=== PATIENT | male | born 1960 | race Two or more races ===

== ENCOUNTER 2020-10-24 20:54 | Emergency (ER) | payer OTHER ==
[2020-10-24 21:14] VITALS: BP 129/76; PULSE 99; TEMP 98.1; BMI 25.8
== END 2020-10-24 21:45 | disposition home or self-care (01) ==
LOC: JER 20:54
DX: N47.2 Paraphimosis (principal)
CPT/HCPCS: 99283-25

== ENCOUNTER 2020-11-07 14:46 | Inpatient (IN) | payer OTHER ==
[2020-11-07 18:20] LABS: BASO % 0.4 % (0-2.0); EOS % 2.4 % (0-4.5); HEMATOCRIT 33.4 % (35.4-49); HEMOGLOBIN 10.9 GM/dL (11.7-16.9); LYMPH % 20.3 % (8-40); MCHC 32.5 g/dl (32.0-35.9); MEAN CELL VOLUME 86.1 fl (80-96); MEAN PLT VOLUME 7.7 fl (7.5-11.1); MONO % 9.2 % (3.8-10.2); NEUT % 67.7 % (42.8-82.8); PLATELET COUNT 389 10^3/uL (134-434); RBC 3.87 M/mm3 (4.00-5.60); RDW 17.6 % (11.9-15.9); WHITE BLOOD COUNT 11.5 K/mm3 (4.0-10.0)
[2020-11-07 18:26] LABS: PROTHROMBIN TIME (PATIENT) 12.1 SEC (9.7-13.0)
[2020-11-07 18:29] LABS: ACTIVATED PTT 28.8 SECONDS (25.2-36.5)
[2020-11-07 18:52] LABS: CHLORIDE 101 mmol/L (98-107); SODIUM 134 mmol/L (136-145)
[2020-11-07 18:59] LABS: CALCIUM 9.1 mg/dL (8.5-10.1)
[2020-11-07 19:00] LABS: ALBUMIN 3.2 g/dl (3.4-5.0); ANION GAP 9 MMOL/L (8-16); BLOOD UREA NITROGEN 20.4 mg/dL (7-18); CO2 24 mmol/L (21-32); GLUCOSE,RANDOM 94 mg/dL (74-106); MAGNESIUM 1.5 mg/dL (1.8-2.4)
[2020-11-07 19:03] LABS: SGOT/AST 13 U/L (15-37); SGPT/ALT 20 U/L (13-61)
[2020-11-07 19:04] LABS: CREATININE 1.4 mg/dL (0.55-1.3)
[2020-11-07 19:05] LABS: BILIRUBIN,TOTAL 0.3 mg/dL (0.2-1); TOT PROT 7.6 g/dl (6.4-8.2)
[2020-11-07 19:06] LABS: ALK PHOS 61 U/L (45-117)
[2020-11-07] MEDS ORDERED: LACTATED RINGERS SOLUTION 1000 ML INFUS.BAG IV ONE (19:12)
[2020-11-07] MEDS ORDERED: MAGNESIUM SULF 50% (8.12 MEQ/2 ML-1 GM VIAL) IVPB ONE (19:12)
[2020-11-07] MEDS ORDERED: MAGNESIUM 1GM/D5W - 1 GM/100 ML IVPB IVPB ONE (19:29)
[2020-11-07 21:13] LABS: EPI CELLS 4 /uL (0-25.1); HYALINE CASTS 1 /uL (0-3.1); PH,URINE 5.5 (5.0-8.0); URINE APPEARANCE Error; URINE BACTERIA 2 /uL (0-1359); URINE BILIRUBIN NEGATIVE (NEGATIVE); URINE COLOR YELLOW; URINE GLUCOSE (UA) NEGATIVE (NEGATIVE); URINE KETONE NEGATIVE (NEGATIVE); URINE LEUK ESTERASE NEGATIVE (NEGATIVE); URINE NITRITE NEGATIVE (NEGATIVE); URINE PROTEIN 1+ (NEGATIVE); URINE RBC 4 /uL (0-23.9); URINE UROBILINOGEN 0.2 mg/dL (0.2-1.0); URINE WBC 9 /uL (0-25.8)
[2020-11-08] MEDS ORDERED: clonazePAM 0.5 MG TABLET PO PRN (00:53)
[2020-11-08] MEDS ORDERED: LORazepam 2 MG/ML SDV VIAL IVPB PRN (00:54)
[2020-11-08 01:46] VITALS: BMI 27.0
[2020-11-08 08:55] LABS: BASO % 1.2 % (0-2.0); EOS % 3.3 % (0-4.5); HEMATOCRIT 33.2 % (35.4-49); HEMOGLOBIN 10.8 GM/dL (11.7-16.9); MCH 28.2 pg (25.7-33.7); MCHC 32.6 g/dl (32.0-35.9); MEAN CELL VOLUME 86.3 fl (80-96); MEAN PLT VOLUME 7.7 fl (7.5-11.1); MONO % 9.6 % (3.8-10.2); NEUT % 54.9 % (42.8-82.8); PLATELET COUNT 364 10^3/uL (134-434); RBC 3.84 M/mm3 (4.00-5.60); RDW 17.2 % (11.9-15.9); WHITE BLOOD COUNT 9.8 K/mm3 (4.0-10.0)
[2020-11-08] MEDS: amLODIPine BESYLATE 10 MG TABLET (FP) PO SCH (09:03)
[2020-11-08] MEDS: CHOLECALCIFEROL (VIT D3) 1,000 UNIT (25 MCG) TABLET PO SCH (09:03)
[2020-11-08 09:31] LABS: ALBUMIN 2.8 g/dl (3.4-5.0); BLOOD UREA NITROGEN 17.5 mg/dL (7-18); CALCIUM 8.9 mg/dL (8.5-10.1); MAGNESIUM 1.5 mg/dL (1.8-2.4)
[2020-11-08 09:35] LABS: CREATININE 1.3 mg/dL (0.55-1.3)
[2020-11-08 09:36] LABS: BILIRUBIN,TOTAL 0.6 mg/dL (0.2-1)
[2020-11-08] MEDS ORDERED: PT OWN MED DRAWER 7, Y5N ONE (21:04)
[2020-11-08] MEDS: PARoxetine HCL 20 MG TABLET PO SCH (21:30)
[2020-11-08] MEDS: ATORVASTATIN CA 20 MG TABLET (FP) PO SCH (21:31)
[2020-11-08] MEDS ORDERED: DULoxetine HCL 20 MG CAPSULE.DR PO SCH (22:00)
[2020-11-09] MEDS: LOSARTAN POTASSIUM 25 MG TABLET PO SCH (11:55)
[2020-11-09] MEDS: amLODIPine BESYLATE 10 MG TABLET (FP) PO SCH (11:55)
[2020-11-09] MEDS: CHOLECALCIFEROL (VIT D3) 1,000 UNIT (25 MCG) TABLET PO SCH (11:55)
[2020-11-09] MEDS: ATORVASTATIN CA 20 MG TABLET (FP) PO SCH (21:06)
[2020-11-09] MEDS: PARoxetine HCL 20 MG TABLET PO SCH (21:06)
[2020-11-10] MEDS: TAMSULOSIN HCL 0.4 MG CAP PO SCH (09:05)
[2020-11-10] MEDS: LOSARTAN POTASSIUM 25 MG TABLET PO SCH (09:06)
[2020-11-10] MEDS ORDERED: PT OWN MED DRAWER 7, Y5N ONE (09:11)
[2020-11-10] MEDS: CHOLECALCIFEROL (VIT D3) 1,000 UNIT (25 MCG) TABLET PO SCH (09:12)
[2020-11-10] MEDS: CYANOCOBALAMIN 1,000 MCG TABLET (FP) PO SCH (09:12)
[2020-11-10] MEDS: amLODIPine BESYLATE 10 MG TABLET (FP) PO SCH (09:12)
[2020-11-10] MEDS: ATORVASTATIN CA 20 MG TABLET (FP) PO SCH (21:14)
[2020-11-10] MEDS: PARoxetine HCL 20 MG TABLET PO SCH (21:14)
[2020-11-11] MEDS: TAMSULOSIN HCL 0.4 MG CAP PO SCH (09:10)
[2020-11-11] MEDS: LOSARTAN POTASSIUM 25 MG TABLET PO SCH (09:10)
[2020-11-11] MEDS: amLODIPine BESYLATE 10 MG TABLET (FP) PO SCH (09:10)
[2020-11-11] MEDS: CHOLECALCIFEROL (VIT D3) 1,000 UNIT (25 MCG) TABLET PO SCH (09:11)
[2020-11-11] MEDS ORDERED: PT OWN MED DRAWER 7, Y5N ONE (09:12)
[2020-11-11] MEDS ORDERED: ARTIFICIAL TEARS (POLYVINYL ALCOHOL) OPTH DROPS OU PRN (10:00)
[2020-11-11] MEDS: CYANOCOBALAMIN 1,000 MCG TABLET (FP) PO SCH (17:31)
[2020-11-11] MEDS: ATORVASTATIN CA 20 MG TABLET (FP) PO SCH (21:22)
[2020-11-11] MEDS: PARoxetine HCL 20 MG TABLET PO SCH (21:23)
[2020-11-12] MEDS ORDERED: PT OWN MED DRAWER 7, Y5N ONE (09:16)
[2020-11-12] MEDS: CHOLECALCIFEROL (VIT D3) 1,000 UNIT (25 MCG) TABLET PO SCH (09:22)
[2020-11-12] MEDS: TAMSULOSIN HCL 0.4 MG CAP PO SCH (09:22)
[2020-11-12] MEDS: LOSARTAN POTASSIUM 25 MG TABLET PO SCH (09:22)
[2020-11-12] MEDS: CYANOCOBALAMIN 1,000 MCG TABLET (FP) PO SCH (09:23)
[2020-11-12] MEDS: amLODIPine BESYLATE 10 MG TABLET (FP) PO SCH (09:23)
[2020-11-12] MEDS: ATORVASTATIN CA 20 MG TABLET (FP) PO SCH (22:21)
[2020-11-12] MEDS: PARoxetine HCL 20 MG TABLET PO SCH (22:21)
[2020-11-13] MEDS: TAMSULOSIN HCL 0.4 MG CAP PO SCH (08:37)
[2020-11-13] MEDS ORDERED: PT OWN MED DRAWER 7, Y5N ONE (09:06)
[2020-11-13] MEDS: CHOLECALCIFEROL (VIT D3) 1,000 UNIT (25 MCG) TABLET PO SCH (09:07)
[2020-11-13] MEDS: LOSARTAN POTASSIUM 25 MG TABLET PO SCH (09:07)
[2020-11-13] MEDS: CYANOCOBALAMIN 1,000 MCG TABLET (FP) PO SCH (09:07)
[2020-11-13] MEDS: amLODIPine BESYLATE 10 MG TABLET (FP) PO SCH (09:07)
[2020-11-13] MEDS: PARoxetine HCL 20 MG TABLET PO SCH (21:34)
[2020-11-13] MEDS: ATORVASTATIN CA 20 MG TABLET (FP) PO SCH (21:34)
[2020-11-14] MEDS: TAMSULOSIN HCL 0.4 MG CAP PO SCH (08:08)
[2020-11-14] MEDS ORDERED: PT OWN MED DRAWER 7, Y5N ONE (09:21)
[2020-11-14] MEDS: amLODIPine BESYLATE 10 MG TABLET (FP) PO SCH (09:22)
[2020-11-14] MEDS: CHOLECALCIFEROL (VIT D3) 1,000 UNIT (25 MCG) TABLET PO SCH (09:22)
[2020-11-14] MEDS: CYANOCOBALAMIN 1,000 MCG TABLET (FP) PO SCH (09:22)
[2020-11-14] MEDS: LOSARTAN POTASSIUM 25 MG TABLET PO SCH (09:22)
[2020-11-14] MEDS: PARoxetine HCL 20 MG TABLET PO SCH (21:20)
[2020-11-14] MEDS: ATORVASTATIN CA 20 MG TABLET (FP) PO SCH (21:21)
[2020-11-15] MEDS ORDERED: PT OWN MED DRAWER 7, Y5N ONE (09:53)
[2020-11-15] MEDS: amLODIPine BESYLATE 10 MG TABLET (FP) PO SCH (10:18)
[2020-11-15] MEDS: LOSARTAN POTASSIUM 25 MG TABLET PO SCH (10:18)
[2020-11-15] MEDS: CYANOCOBALAMIN 1,000 MCG TABLET (FP) PO SCH (10:18)
[2020-11-15] MEDS: CHOLECALCIFEROL (VIT D3) 1,000 UNIT (25 MCG) TABLET PO SCH (10:18)
[2020-11-15] MEDS: TAMSULOSIN HCL 0.4 MG CAP PO SCH (10:18)
[2020-11-15 14:22] VITALS: BP 143/88; PULSE 101; TEMP 97.8
== END 2020-11-15 19:07 | disposition home or self-care (01) | DRG 56 ==
LOC: JER 14:46 → JERBED 18:40 → J6S 11-08 00:22
PROVIDERS: ADMIT Internal Medicine; ATTEND Internal Medicine
DX: G91.2 (Idiopathic) normal pressure hydrocephalus (principal); G93.41 Metabolic encephalopathy; N17.9 Acute kidney failure, unspecified; R26.81 Unsteadiness on feet; I10 Essential (primary) hypertension; E11.9 Type 2 diabetes mellitus without complications; G20 Parkinson's disease; F32.9 Major depressive disorder, single episode, unspecified; R33.9 Retention of urine, unspecified
CPT/HCPCS: 36415; 70450-TC; 71045-TC-FY; 80053; 80061; 81003; 82607; 82746; 83036; 83735; 84443; 84484; 85025; 85610; 85730; 87086; 93005; 93010; 93306-TC; 97116-GP; 97162-GP; 99285-25; C9803; U0003; U0005

== ENCOUNTER 2020-11-23 20:41 | Inpatient (IN) | payer OTHER ==
[2020-11-23 20:48] VITALS: BMI 25.8
[2020-11-23] MEDS ORDERED: PARoxetine HCL 20 MG TABLET PO ONE (22:43)
[2020-11-23] MEDS ORDERED: PARoxetine HCL 10 MG TABLET ONE (22:50)
[2020-11-23 22:57] LABS: BASO % 0.9 % (0-2.0); EOS % 0.8 % (0-4.5); HEMATOCRIT 32.4 % (35.4-49); HEMOGLOBIN 10.6 GM/dL (11.7-16.9); LYMPH % 15.9 % (8-40); MCH 27.8 pg (25.7-33.7); MCHC 32.8 g/dl (32.0-35.9); MEAN CELL VOLUME 84.8 fl (80-96); MEAN PLT VOLUME 7.4 fl (7.5-11.1); MONO % 6.5 % (3.8-10.2); NEUT % 75.9 % (42.8-82.8); PLATELET COUNT 382 10^3/uL (134-434); RBC 3.82 M/mm3 (4.00-5.60); RDW 17.1 % (11.9-15.9); WHITE BLOOD COUNT 17.2 K/mm3 (4.0-10.0)
[2020-11-23 23:18] LABS: CHLORIDE 102 mmol/L (98-107); SODIUM 133 mmol/L (136-145)
[2020-11-23 23:20] LABS: BLOOD UREA NITROGEN 17.4 mg/dL (7-18); CALCIUM 8.9 mg/dL (8.5-10.1)
[2020-11-23 23:21] LABS: ANION GAP 10 MMOL/L (8-16); CO2 22 mmol/L (21-32); GLUCOSE,RANDOM 193 mg/dL (74-106); MAGNESIUM 1.7 mg/dL (1.8-2.4)
[2020-11-23 23:23] LABS: SGPT/ALT 9 U/L (13-61)
[2020-11-23 23:24] LABS: CREATININE 1.4 mg/dL (0.55-1.3); SGOT/AST 20 U/L (15-37)
[2020-11-23 23:25] LABS: BILIRUBIN,TOTAL 0.3 mg/dL (0.2-1); TOT PROT 7.6 g/dl (6.4-8.2)
[2020-11-23 23:27] LABS: ALK PHOS 61 U/L (45-117)
[2020-11-24 01:04] LABS: URINE APPEARANCE CLEAR; URINE BILIRUBIN NEGATIVE (NEGATIVE); URINE COLOR YELLOW; URINE GLUCOSE (UA) NEGATIVE (NEGATIVE); URINE KETONE NEGATIVE (NEGATIVE); URINE LEUK ESTERASE NEGATIVE (NEGATIVE); URINE NITRITE NEGATIVE (NEGATIVE); URINE PROTEIN NEGATIVE (NEGATIVE); URINE UROBILINOGEN 0.2 mg/dL (0.2-1.0)
[2020-11-24] MEDS ORDERED: ACETAMINOPHEN 1000 MG/100 ML VIAL IVPB ONE (02:29)
[2020-11-24] MEDS ORDERED: ACETAMINOPHEN INJECTION 100 ML IVPB ONE (02:35)
[2020-11-24 06:28] LABS: BASO % 0.4 % (0-2.0); EOS % 0.9 % (0-4.5); HEMATOCRIT 32.7 % (35.4-49); HEMOGLOBIN 10.7 GM/dL (11.7-16.9); LYMPH % 24.3 % (8-40); MCH 28.3 pg (25.7-33.7); MCHC 32.9 g/dl (32.0-35.9); MEAN PLT VOLUME 7.6 fl (7.5-11.1); MONO % 7.9 % (3.8-10.2); NEUT % 66.5 % (42.8-82.8); PLATELET COUNT 397 10^3/uL (134-434); RDW 16.6 % (11.9-15.9); WHITE BLOOD COUNT 13.2 K/mm3 (4.0-10.0)
[2020-11-24 06:55] LABS: ALBUMIN 2.9 g/dl (3.4-5.0); BLOOD UREA NITROGEN 16.6 mg/dL (7-18)
[2020-11-24 06:58] LABS: CREATININE 1.3 mg/dL (0.55-1.3)
[2020-11-24 06:59] LABS: BILIRUBIN,TOTAL 0.2 mg/dL (0.2-1)
[2020-11-24 07:00] LABS: TOT PROT 7.4 g/dl (6.4-8.2)
[2020-11-24] MEDS ORDERED: amLODIPine BESYLATE 10 MG TABLET (FP) PO SCH (10:00)
[2020-11-24] MEDS ORDERED: LOSARTAN POTASSIUM 25 MG TABLET PO SCH ×2 (10:00→22:00)
[2020-11-24] MEDS ORDERED: CYANOCOBALAMIN 1,000 MCG TABLET (FP) PO SCH (10:00)
[2020-11-24] MEDS ORDERED: PATIENT'S OWN MEDICATION (NON-FORMULARY) (Mirabegron [Myrbetriq] 50 MG Tab.Er.24h) PO SCH (10:00)
[2020-11-24] MEDS ORDERED: CARBIDOPA/LEVODOPA 25/100 TABLET (FP) ONE (10:23)
[2020-11-24] MEDS ORDERED: amLODIPine BESYLATE 5 MG TABLET (FP) ONE (10:23)
[2020-11-24] MEDS ORDERED: LOSARTAN POTASSIUM 50 MG TABLET ONE (10:23)
[2020-11-24] MEDS ORDERED: PT OWN MED DRAWER 7, Y5N ONE ×2 (10:24→19:07)
[2020-11-24] MEDS ORDERED: METOPROLOL TARTRATE 25 MG TABLET (FP) PO SCH (12:00)
[2020-11-24] MEDS ORDERED: METOPROLOL TARTRATE 25 MG TABLET (FP) ONE (12:01)
[2020-11-24 16:27] VITALS: TEMP 97.9
[2020-11-24] MEDS ORDERED: levETIRAcetam 500 MG TABLET (FP) PO ONE (18:51)
[2020-11-24 19:27] VITALS: BP 144/83; PULSE 69
[2020-11-24 20:07] LABS: INR 1.1 (0.83-1.09); PROTHROMBIN TIME (PATIENT) 12.9 SEC (9.7-13.0)
[2020-11-24 20:10] LABS: ACTIVATED PTT 26.2 SECONDS (25.2-36.5)
[2020-11-24] MEDS ORDERED: SODIUM CHLORIDE 1,000 ML IV SCH (21:00)
[2020-11-24] MEDS ORDERED: levETIRAcetam 500 MG TABLET (FP) PO SCH (22:00)
[2020-11-24] MEDS ORDERED: ATORVASTATIN CA 20 MG TABLET (FP) PO SCH (22:00)
[2020-11-24] MEDS ORDERED: PARoxetine HCL 20 MG TABLET PO SCH (22:00)
== END 2020-11-24 21:25 | disposition short-term general hospital (02) | DRG 85 ==
LOC: JER 20:41 → JERBED 11-24 00:13
PROVIDERS: ADMIT Internal Medicine; ATTEND Internal Medicine
DX: S06.5X0A Traumatic subdural hemorrhage without loss of consciousness, initial encounter (principal); G93.41 Metabolic encephalopathy; G91.2 (Idiopathic) normal pressure hydrocephalus; N17.9 Acute kidney failure, unspecified; S06.6X0A Traumatic subarachnoid hemorrhage without loss of consciousness, initial encounter; R41.82 Altered mental status, unspecified; I10 Essential (primary) hypertension; E11.9 Type 2 diabetes mellitus without complications; G20 Parkinson's disease; N39.498 Other specified urinary incontinence; D72.829 Elevated white blood cell count, unspecified; W18.09XA Striking against other object with subsequent fall, initial encounter; Y92.098 Other place in other non-institutional residence as the place of occurrence of the external cause; R26.81 Unsteadiness on feet
CPT/HCPCS: 36415; 70450-TC; 71045-TC-FY; 72125-TC; 80053; 81003; 82962; 83735; 84484; 85025; 85610; 85730; 87040; 87086; 93005; 93010; 99285-25; C9803; J0131; U0003; U0005

== ENCOUNTER 2021-09-27 20:07 | Inpatient (IN) | payer OTHER ==
[2021-09-27 22:05] LABS: BASO % 0.5 % (0-2.0); HEMATOCRIT 37.3 % (35.4-49); HEMOGLOBIN 12.1 GM/dL (11.7-16.9); MCH 29.3 pg (25.7-33.7); MCHC 32.4 g/dl (32.0-35.9); MEAN CELL VOLUME 90.4 fl (80-96); MEAN PLT VOLUME 8.1 fl (7.5-11.1); MONO % 10.5 % (3.8-10.2); PLATELET COUNT 290 10^3/uL (134-434); RBC 4.12 M/mm3 (4.00-5.60); RDW 15.9 % (11.9-15.9)
[2021-09-27 22:15] LABS: INR 1.04 (0.83-1.09)
[2021-09-27 22:18] LABS: ACTIVATED PTT 29.2 SECONDS (25.2-36.5)
[2021-09-27 22:35] LABS: CALCIUM 8.9 mg/dL (8.5-10.1)
[2021-09-27 22:36] LABS: ALBUMIN 3.4 g/dl (3.4-5.0); BLOOD UREA NITROGEN 20.3 mg/dL (7-18)
[2021-09-27 22:39] LABS: CREATININE 1.3 mg/dL (0.55-1.3)
[2021-09-27 22:40] LABS: TOT PROT 7.3 g/dl (6.4-8.2)
[2021-09-27 22:41] LABS: BILIRUBIN,TOTAL 0.3 mg/dL (0.2-1)
[2021-09-28] MEDS ORDERED: SODIUM CHLORIDE 1,000 ML IV SCH (00:15)
[2021-09-28 09:07] VITALS: BMI 27.4
[2021-09-28] MEDS ORDERED: amLODIPine BESYLATE 10 MG TABLET (FP) PO SCH (10:00)
[2021-09-28] MEDS ORDERED: LOSARTAN POTASSIUM 25 MG TABLET PO SCH (10:00)
[2021-09-28 10:01] LABS: BLOOD UREA NITROGEN 23.5 mg/dL (7-18); CHLORIDE 107 mmol/L (98-107); CREATININE 1.7 mg/dL (0.55-1.3); GLUCOSE,RANDOM 107 mg/dL (74-106); SODIUM 140 mmol/L (136-145)
[2021-09-28 10:02] LABS: ALBUMIN 3.4 g/dl (3.4-5.0); ALK PHOS 71 U/L (45-117); BILIRUBIN,TOTAL 0.4 mg/dL (0.2-1); CALCIUM 8.8 mg/dL (8.5-10.1); CO2 25 mmol/L (21-32); MAGNESIUM 1.9 mg/dL (1.8-2.4); SGOT/AST 17 U/L (15-37); SGPT/ALT 16 U/L (13-61); TOT PROT 7.3 g/dl (6.4-8.2)
[2021-09-28] MEDS: lamoTRIgine 100 MG TABLET PO SCH (13:09)
[2021-09-28] MEDS ORDERED: PARoxetine HCL 20 MG TABLET PO SCH (22:00)
[2021-09-28] MEDS: ATORVASTATIN CA 20 MG TABLET (FP) PO SCH (22:48)
[2021-09-28] MEDS: PARoxetine HCL 10 MG TABLET PO SCH (22:48)
[2021-09-28] MEDS: RIVASTIGMINE TARTRATE 1.5 MG CAPSULE PO SCH (22:48)
[2021-09-29 08:17] LABS: HEMATOCRIT 38.5 % (35.4-49); HEMOGLOBIN 12.4 GM/dL (11.7-16.9); MCH 29.1 pg (25.7-33.7); MCHC 32.2 g/dl (32.0-35.9); MEAN CELL VOLUME 90.4 fl (80-96); MEAN PLT VOLUME 8.4 fl (7.5-11.1); PLATELET COUNT 302 10^3/uL (134-434); RBC 4.26 M/mm3 (4.00-5.60); WHITE BLOOD COUNT 12.2 K/mm3 (4.0-10.0)
[2021-09-29 08:30] LABS: CALCIUM 8.8 mg/dL (8.5-10.1)
[2021-09-29 08:31] LABS: ALBUMIN 3.2 g/dl (3.4-5.0); BLOOD UREA NITROGEN 22.8 mg/dL (7-18); CREATININE 1.5 mg/dL (0.55-1.3)
[2021-09-29 08:32] LABS: BILIRUBIN,TOTAL 0.3 mg/dL (0.2-1)
[2021-09-29 08:33] LABS: TOT PROT 7.2 g/dl (6.4-8.2)
[2021-09-29] MEDS: lamoTRIgine 100 MG TABLET PO SCH (09:10)
[2021-09-29] MEDS: RIVASTIGMINE TARTRATE 1.5 MG CAPSULE PO SCH ×2 (09:10→21:49)
[2021-09-29] MEDS: MELATONIN 5 MG TABLETS PO PRN (21:43)
[2021-09-29] MEDS: ATORVASTATIN CA 20 MG TABLET (FP) PO SCH (21:43)
[2021-09-29] MEDS: PARoxetine HCL 10 MG TABLET PO SCH (21:43)
[2021-09-30] MEDS ORDERED: Insulin (LOG) Aspart 100 UNITS/ML VIAL SQ PRN (09:09)
[2021-09-30] MEDS ORDERED: LISINOPRIL 5 MG TABLET PO SCH (10:00)
[2021-09-30] MEDS: RIVASTIGMINE TARTRATE 1.5 MG CAPSULE PO SCH ×2 (10:58→21:41)
[2021-09-30] MEDS: lamoTRIgine 100 MG TABLET PO SCH (10:59)
[2021-09-30] MEDS: ATORVASTATIN CA 20 MG TABLET (FP) PO SCH (21:41)
[2021-09-30] MEDS: MELATONIN 5 MG TABLETS PO PRN (21:41)
[2021-09-30] MEDS: PARoxetine HCL 10 MG TABLET PO SCH (21:41)
[2021-10-01] MEDS ORDERED: MELATONIN 5 MG TABLETS PO PRN (06:55)
[2021-10-01] MEDS ORDERED: Insulin (LOG) Aspart 100 UNITS/ML VIAL SQ PRN (07:00)
[2021-10-01] MEDS: LISINOPRIL 5 MG TABLET PO SCH (09:15)
[2021-10-01] MEDS: RIVASTIGMINE TARTRATE 1.5 MG CAPSULE PO SCH ×2 (09:16→21:16)
[2021-10-01 09:34] LABS: HEMATOCRIT 39.5 % (35.4-49); MCH 29.9 pg (25.7-33.7); MCHC 32.8 g/dl (32.0-35.9); MEAN CELL VOLUME 91.1 fl (80-96); PLATELET COUNT 309 10^3/uL (134-434); RBC 4.33 M/mm3 (4.00-5.60); RDW 16.5 % (11.9-15.9); WHITE BLOOD COUNT 9.6 K/mm3 (4.0-10.0)
[2021-10-01 09:53] LABS: CALCIUM 9.1 mg/dL (8.5-10.1)
[2021-10-01 09:54] LABS: ALBUMIN 3.4 g/dl (3.4-5.0); BLOOD UREA NITROGEN 28.4 mg/dL (7-18)
[2021-10-01 09:57] LABS: CREATININE 1.6 mg/dL (0.55-1.3)
[2021-10-01 09:59] LABS: BILIRUBIN,TOTAL 0.7 mg/dL (0.2-1); TOT PROT 7.6 g/dl (6.4-8.2)
[2021-10-01] MEDS: lamoTRIgine 100 MG TABLET PO SCH (11:24)
[2021-10-01] MEDS: ATORVASTATIN CA 20 MG TABLET (FP) PO SCH (21:14)
[2021-10-01] MEDS: PAROXETINE HCL 20 MG, PAROXETINE HCL 10 MG PO SCH (21:15)
[2021-10-01] MEDS ORDERED: PARoxetine HCL 10 MG TABLET PO SCH (22:00)
[2021-10-02] MEDS: RIVASTIGMINE TARTRATE 1.5 MG CAPSULE PO SCH ×2 (09:32→21:55)
[2021-10-02] MEDS: LISINOPRIL 5 MG TABLET PO SCH (09:32)
[2021-10-02] MEDS: lamoTRIgine 100 MG TABLET PO SCH (09:32)
[2021-10-02] MEDS: PAROXETINE HCL 20 MG, PAROXETINE HCL 10 MG PO SCH (21:54)
[2021-10-02] MEDS: ATORVASTATIN CA 20 MG TABLET (FP) PO SCH (21:54)
[2021-10-03] MEDS: lamoTRIgine 100 MG TABLET PO SCH (09:18)
[2021-10-03] MEDS: LISINOPRIL 5 MG TABLET PO SCH (09:19)
[2021-10-03] MEDS: RIVASTIGMINE TARTRATE 1.5 MG CAPSULE PO SCH ×2 (09:19→21:22)
[2021-10-03] MEDS: ATORVASTATIN CA 20 MG TABLET (FP) PO SCH (21:19)
[2021-10-03] MEDS: PAROXETINE HCL 20 MG, PAROXETINE HCL 10 MG PO SCH (21:19)
[2021-10-04] MEDS: lamoTRIgine 100 MG TABLET PO SCH (09:31)
[2021-10-04] MEDS: RIVASTIGMINE TARTRATE 1.5 MG CAPSULE PO SCH (09:32)
[2021-10-04] MEDS: LISINOPRIL 5 MG TABLET PO SCH (09:37)
[2021-10-04 14:18] VITALS: BP 122/71; PULSE 100; RESP 18; TEMP 98.6
== END 2021-10-04 17:15 | DRG 57 ==
LOC: JER 20:07 → OBSVTOIN 22:00 → JERBED 22:00 → INTOOBSV 22:00 → UNDOADMOB 22:00 → JERBED 09-28 08:57 → J4W 09-28 08:57 → JERBED 09-29 09:12 → OBSVTOIN 09-29 09:12 → J8W 09-30 20:02
PROVIDERS: ADMIT Internal Medicine; ATTEND Internal Medicine
DX: G20 Parkinson's disease (principal); G91.2 (Idiopathic) normal pressure hydrocephalus; R26.81 Unsteadiness on feet; I10 Essential (primary) hypertension; R29.6 Repeated falls; E78.5 Hyperlipidemia, unspecified; E11.9 Type 2 diabetes mellitus without complications; F03.90 Unspecified dementia, unspecified severity, without behavioral disturbance, psychotic disturbance, mood disturbance, and anxiety
CPT/HCPCS: 36415; 70450-TC; 70486-TC; 71045-TC-FY; 72125-TC; 80053; 82962; 83735; 84484; 85025; 85027; 85610; 85730; 86850; 86900; 86901; 87040; 93005; 93010; 97116-GP; 97162-GP; 99285-25; C9803-CS; U0003; U0005